=== PATIENT | male | born 1970 | race Asian ===

== ENCOUNTER 2017-02-09 09:58 | Emergency (ER) | payer OTHER ==
[2017-02-09 13:15] VITALS: BP 128/90
== END 2017-02-09 13:15 | disposition home or self-care (01) ==
LOC: ED 09:58
DX: R51 Headache (principal); M79.1 Myalgia; F17.210 Nicotine dependence, cigarettes, uncomplicated; Z79.1 Long term (current) use of non-steroidal anti-inflammatories (NSAID)
CPT/HCPCS: 87804; 99406; J2550; J7030